=== PATIENT | female | born 1955 | race Caucasian/White ===

== ENCOUNTER 2016-10-14 15:07 | Inpatient (IN) | payer MEDICARE, BC ==
--- NOTE | ~2016-10-14 | HP ---
History And Physical [place] [id number] [facility] [place]. [address] NAME: VERENICE RDZ : 53 STATUS : ADM IN [facility]#: [id number] AGE: 60 ADM/REG DATE : 10/14/16 MR#: [id number] REPORT SERV DATE: 10/15/16 DICTATED BY: CHI DESAI DATE: 10/14/16 REPORT STATUS : Draft TRANSCRIBED BY: MODL DATE: 10/14/16 DATE OF ADMISSION: 10/14/2016 REASON FOR ADMISSION: Cachexia with acute renal failure. Severe dehydration. HISTORY OF PRESENT ILLNESS: Ms. Rdz is a 60-year-old female with rheumatoid arthritis, scleroderma, chronic kidney disease, chronic gastrointestinal motility disorder due to scleroderma, status post recent hospitalization for pneumonia and nausea and vomiting. She says she began losing weight even in the hospital, but discharged to [facility], where she continued to lose weight. Her appetite has been very poor. She tries to eat. She denied vomiting, but her son says she has been vomiting all the time. She also acknowledges that she has been having high colostomy output. She has had increasing malaise and increasing weakness, and she has been home over the past week and actually came to the hospital today because she was too weak to turn the oxygen knob of her oxygen tank, and she presented with a chief complaint of shortness of breath. The patient denies coughing or wheezing, any chest pain. No abdominal pain. She denies any change in her baseline joint and low back pain. No coughing or wheezing. No focal weakness. No bleeding. REVIEW OF SYSTEMS: Remainder of review of systems are negative. PAST MEDICAL HISTORY: As mentioned above, history of colostomy over the last 2 years. Home oxygen. She has been diagnosed with liver disease, but we do not have verification of that. MEDICATIONS: Include magnesium, albuterol, Synthroid, calcium, Levsin, sodium bicarbonate, Premarin, Prilosec, aspirin, Lortab, Orencia, hydroxychloroquine, temazepam, Anoro, multivitamin, and Ultram. ALLERGIES: CODEINE. FAMILY HISTORY: Positive for coronary artery disease. SOCIAL HISTORY: The patient has no tobacco, alcohol, or drug history. She apparently was a remote smoker. PHYSICAL EXAMINATION: VITAL SIGNS: On presentation, blood pressure 90/56, pulse 74, respirations 16, afebrile, and sat 100%. GENERAL: On exam, comfortable, but extremely cachectic white female, oriented x3. In no apparent distress. HEENT: She had very dry mucous membranes and severe temporal wasting with sunken orbits. NECK: Revealed flat jugular veins. No carotid bruits, adenopathy, or goiter. CARDIAC: Regular rate and rhythm. No murmurs, gallops, or rubs. LUNGS: Clear to auscultation bilaterally with some hyperexpansion. ABDOMEN: Showed an ostomy which appeared abnormal output, very tympanic and distended abdomen. History And Physical [address] [address] NAME: VERENICE RDZ : 53 STATUS : ADM IN [facility]#: [id number] AGE: 60 ADM/REG DATE : 10/14/16 MR#: [id number] REPORT SERV DATE: 10/15/16 DICTATED BY: CHI DESAI DATE: 10/14/16 REPORT STATUS : Draft TRANSCRIBED BY: RUBEN DATE: 10/14/16 EXTREMITIES: No cyanosis, clubbing, or edema. She had diminished pulses and virtually absent capillary refill with severe skin tenting. NEUROLOGICAL: She has 4/5 strength in all four extremities. SKIN: Warm and dry. PSYCHIATRIC: She is appropriate. LABORATORY EVALUATION: Sodium 141, potassium 3.3, chloride 110, bicarb 13, BUN 106, creatinine 2.5, and glucose 127. Anion gap of 18. Magnesium 1.5. White count 9.7, H and H of 11 and 33, and platelets 327. EKG reviewed by me showed very low voltages, but normal sinus rhythm with normal NC interval. Chest x-ray showed no apparent disease. Elevated right hemidiaphragm with atelectasis in the right base also noted. ASSESSMENT AND PLAN: 1. Severe cachexia with severe dehydration and severe malnutrition, apparently due to chronic nausea and vomiting due to the scleroderma impact upon her gastroesophageal junction, probable gastroparesis and impaired gut motility. She has a severe acute renal failure with symptomatic uremia as a result of this. Aggressive IV hydration is recommended with anti-emetic therapy. Appetite stimulants were recommended with close monitoring of p.o. intake. Dietary supplements to be given frequently. Remeron, Megace, and Marinol will all be started. Remeron apparently had been discontinued due to her liver disease. However, review of old records showed normal bilirubin, normal INR, and no evidence of hepatic dysfunction with no hepatocellular damage either. While she may in fact have anatomic cirrhosis even if there is no contraindication to Remeron or any other appetite stimulating therapies, these will therefore be reinstituted immediately. Her malnutrition and dehydration, however, are life threatening and have to be addressed. If p.o. intake remained impaired after these therapies, she may benefit from a J-tube placement with possible G-tube drainage with some probable severe gastroparesis due to scleroderma. We anticipate her creatinine will improve rapidly with aggressive hydration. We will follow her creatinine expectantly. Dr. Zapata has been notified of her hospitalization, but do not anticipate that this is scleroderma, kidney, or any other focal renal injury. Adams catheter replaced on the left. 2. COPD: This appears to be stable. Home oxygen will continue. The dyspnea appears to be only secondary to her severe weakness due to inability to turn a knob. Physical Therapy, however, will be reinstituted with anticipation of senior care facility following discharge. 3. Metabolic acidosis due to probable retained organic acids due to her acute kidney injury. She may very well also have significant starvation ketosis. Urinalysis will be investigated. There is no anticipation of lactic acidosis given her lack of symptoms of sepsis or mesenteric ischemia. 4. Anemia: She has a history of iron deficiency. We will reinvestigate iron stores. [facility]/MODL History And Physical [address] [address] NAME: VERENICE RDZ LLOYD : 53 STATUS : ADM IN [facility]#: [id number] AGE: 60 ADM/REG DATE : 10/14/16 MR#: [id number] REPORT SERV DATE: 10/15/16 DICTATED BY: CHI DESAI DATE: 10/14/16 REPORT STATUS : Draft TRANSCRIBED BY: RUBEN DATE: 10/14/16 Chi Desai M.D. / [id number] CC: Ilia Ward M.D. Richard Moody, M.D.
--- NOTE | ~2016-10-14 | CN ---
Consultation Report [facility] [address] [place]. [address] NAME: VERENICE AVENDANO : 53 STATUS : ADM IN [facility]#: [id number] AGE: 60 ADM/REG DATE : 10/14/16 MR#: [id number] REPORT SERV DATE: 10/17/16 DICTATED BY: FRANKO BERNAL DATE: 10/17/16 REPORT STATUS : Draft TRANSCRIBED BY: MODL DATE: 10/17/16 CONSULTATION. DATE OF CONSULTATION: 10/17/2016 REASON FOR CONSULTATION: Small-bowel obstruction. HISTORY OF PRESENT ILLNESS: This is a 60-year-old female, who has had a history of anal cancer for which she underwent radiation. The patient has a history of extensive radiation enteritis and previously had anal incontinence for which she had an end colostomy performed and later revision for colon stricture at the ostomy. The patient was admitted at this time for weight loss, cachexia, and high ostomy output associated with dehydration and acute kidney injury. We were consulted for distended loops of small bowel on x-ray which has increased over the last 2 hours, her distention that is. PAST MEDICAL HISTORY: Extensive and includes stage 4 chronic kidney disease, scleroderma, bowel obstruction, chemotherapy, radiation enterocolitis, rheumatoid arthritis, hypothyroidism, gastroesophageal reflux disease. Raynaud's syndrome, anemia, dysphagia, pulmonary hypertension, CHF, cervical conization/LEEP, neuropathy, MRSA pneumonia, and some history of cirrhosis of the liver. PAST SURGICAL HISTORY: Includes partial colectomy with ostomy and ostomy revision, cholecystectomy, appendectomy, section, hysterectomy, surgery on her foot, and a vulvectomy. FAMILY MEDICAL HISTORY: Includes CVA, coronary artery disease, and breast cancer. SOCIAL HISTORY: She is an ex-smoker. ALLERGIES: ALLERGIC TO CODEINE. MEDICATIONS: Takes dronabinol, heparin, Plaquenil, levothyroxine, Reglan, mirtazapine, Megace, Protonix, and thiamine. PHYSICAL EXAMINATION: GENERAL: The patient is alert and oriented x4. VITAL SIGNS: She is 98.9 degrees, 158/90, 71, 18, and 95%. HEENT: She is cachectic, PERRL, and EOMI. NECK: Cachetic. Trachea is midline. CHEST: Decreased bilateral breath sounds. HEART: Slightly tachycardic. No murmurs, rubs, or gallops. Distant heart sounds. ABDOMEN: Rigid, firm, and grossly distended. Positive tenderness to palpation diffusely. Positive peritoneal signs. Colostomy present in the left lower quadrant, is dusky, with some old blood in the ostomy appliance. Consultation Report [place] [id number] [place] [address] NAME: VERENICE AVENDANO : 53 STATUS : ADM IN [facility]#: [id number] AGE: 60 ADM/REG DATE : 10/14/16 MR#: [id number] REPORT SERV DATE: 10/17/16 DICTATED BY: FRANKO BERNAL DATE: 10/17/16 REPORT STATUS : Draft TRANSCRIBED BY: RUBEN DATE: 10/17/16 EXTREMITIES: Cool extremities, evidence of venous stasis disease. NEUROLOGIC: Decreased sensation, bilateral lower extremities. Neuro otherwise normal. LABORATORY DATA: BMP: 141, 4.7, 114, 16, 65, 1.61. Glucose of 91. Albumin is 2.3. CBC: White count of 6. H and H 8.4 and 25.1. Platelets 251. IMAGING: Abdominal x-rays over the last 2 to 3 days show grossly distended loops of small bowel and colon. IMPRESSION AND PLAN: This is a 60-year-old female with a rigid abdomen with peritonitis, abdominal compartment syndrome, and severe protein-calorie malnourishment. The plan will be for exploratory laparotomy and indicated procedures. We will draw stat labs and place a Adams now. She does have an NG tube. We have had a long discussion with the family about the patient's poor prognosis secondary to her severe protein-calorie malnutrition and the severity of this problem especially when associated with her extensive medical history and general debilitated state. Dr. Bernal was present for my evaluation. DICTATED BY: MD BLAZE Ayala/RUBEN Franko Bernal MD / [id number] CC: Franko Bernal MD
--- NOTE | ~2016-10-14 | DS ---
Discharge Summary [facility] [address] [place]. [address] NAME: VERENICE AVENDANO : 53 STATUS : DIS IN PAT#: [id number] AGE: 60 ADM/REG DATE : 10/14/16 MR#: [id number] REPORT SERV DATE: 10/21/16 DICTATED BY: IZAIAH WAN DATE: 10/20/16 REPORT STATUS : Draft TRANSCRIBED BY: MODL DATE: 10/20/16 ADMISSION DATE: 10/14/2016 DISCHARGE DATE: 10/17/2016 DATE OF : 10/17/2016. DIAGNOSES AT : 1. Ischemic bowel. 2. Acute abdominal compartment syndrome, exact etiology unclear. 3. Acute kidney injury, present on admission. 4. Chronic kidney disease. 5. Metabolic acidosis. 6. Hypomagnesemia. 7. Gastrointestinal motility disorder, possible small-bowel overgrowth. 8. Chronic nausea, question gastroparesis with gastroesophageal reflux disease. 9. Scleroderma with Raynaud's. 10.Rheumatoid arthritis. 11.Pulmonary hypertension. 12.Tricuspid regurgitation. 13.Right ventricular dysfunction. 14.Chronic diastolic heart failure. 15.Chronic respiratory failure. 16.History of rectal cancer, post chemotherapy and radiation therapy with subsequent radiation colitis. 17.Neuropathy. 18.Chronic anemia. 19.Alcoholic liver disease. 20.Chronic pain syndrome. 21.Hypotension associated with DEWEY inhibitor therapy (recommended in the hospital by Nephrology because of scleroderma renal crisis risk). OPERATION AND PROCEDURE: Exploratory laparotomy, 10/17/2006, Dr. Kishor Bernal. PRESENT ILLNESS: This is a 60-year-old white female who was triaged in the emergency room on 10/14/2016 at 1304 hours complaining of shortness of breath. Her admission blood pressure was 91/56, temperature 97.9, pulse 74, respirations 16, and O2 saturation 100% on 3 L. After evaluation in the emergency room, she was found to have several metabolic abnormalities. She was referred to the Hospitalist Service for admission. She was seen by Dr. Albino Galindo, admitted as described on admission history and physical examination. Additional history included a hospitalization here, 09/10/2016 to 09/18/2016, with discharge diagnoses: 1. Right lower lobe pneumonia. 2. Acute kidney injury on chronic kidney disease, stage III. 3. Status post septic shock. 4. Nausea and vomiting. Discharge Summary [place] [address] [place]. [address] NAME: VERENICE AVENDANO : 53 STATUS : DIS IN PAT#: [id number] AGE: 60 ADM/REG DATE : 10/14/16 MR#: [id number] REPORT SERV DATE: 10/21/16 DICTATED BY: IZAIAH WAN DATE: 10/20/16 REPORT STATUS : Draft TRANSCRIBED BY: MODL DATE: 10/20/16 5. Bradycardia which had resolved. 6. Debility and deconditioning. She was transferred to [facility] for rehabilitation. She continued to lose weight at [facility]. She was subsequently discharged home. Her appetite remained poor. She had persistent anorexia, nausea, and vomiting with a high colostomy output. ADDITIONAL HISTORY: Per Dr. Galindo. PHYSICAL EXAMINATION: Per Dr. Galindo. ADMISSION LABORATORY: Per Dr. Galindo. HOSPITAL COURSE: She was admitted by Dr. Galindo with one severe cachexia with: 1. Severe dehydration and severe malnutrition apparently due to chronic nausea and vomiting due to scleroderma impact upon her GI junction, probable gastroparesis, and impaired gut motility. 2. Acute kidney injury. 3. Stable COPD. 4. Metabolic acidosis. 5. Anemia. On admission, she was placed on 6 [address]. She was given crystalloid volume resuscitation. She was placed on Marinol, Reglan, and Remeron in attempt to stimulate her appetite. Renal consultation was obtained. She was seen by Dr. Zapata and Kera Best. Her hospitalist care was assumed by the undersigned on 10/15/2016. With the above-mentioned therapy, her nausea and vomiting improved. Her abdomen became initially less distended. She maintained a good ostomy output. Her BUN on admission was 106. By the morning of 10/17/2016, it had improved to 56. Her creatinine had fallen from 2.54 to 1.63. Nephrology recommended low-dose DEWEY inhibitor therapy in an attempt to avoid scleroderma renal crisis. With this, she developed systolic blood pressures in the 60s and 70s. She was asymptomatic with this. Albumin infusions were recommended. Her blood pressure improved into the 80s and 90s systolic, and she remained asymptomatic. It was felt she might have bacterial overgrowth with her GI motility disorder. She was started on rifaximin which also seemed to provide some benefit. On the morning of 10/17/2016, she had no nausea. She was having stool. She was taking p.o. liquids and tolerating this well. She was not short of breath and she was not having chest pain. She wanted to try additional p.o. intake. On exam, she had no JVD. Her lungs were Discharge Summary [address] [place]. [address] NAME: VERENICE AVENDANO : 53 STATUS : DIS IN PAT#: [id number] AGE: 60 ADM/REG DATE : 10/14/16 MR#: [id number] REPORT SERV DATE: 10/21/16 DICTATED BY: IZAIAH WAN DATE: 10/20/16 REPORT STATUS : Draft TRANSCRIBED BY: RUBEN DATE: 10/20/16 clear and heart regular. Her abdomen was soft and nontender. She had active bowel sounds. She did not have any increased distention. Her diet was advanced. With her clinical improvement, PT/OT consultations were requested to consider possible rehab again when her hospital care was complete. At 1434 hours on 10/17/2016, I was called to see her because of sudden severe abdominal pain and distention. At that point, she was having ostomy output. She reported that for lunch she had had 2 pieces of pasta and sips of soup. Her blood pressure was 150/86. She was in sinus rhythm at 95. Her O2 sats were in the 80s on room air but 96 on 5 L. Her lungs were clear, heart regular, but her abdomen was dramatically tight, distended, hard, and tender. A bowel obstruction was considered. For symptomatic control, she was given IV morphine and Ativan. A stat KUB did not show any free air, but only dilated bowel as before. An NG tube was placed and 400 plus mL of a soupy aspirate was obtained. It did not relieve her abdominal pain. Surgical consultation was requested. I spoke with Dr. Kishor Bernal who knew her. A president sales and marketing arrived quickly and concurred with her acute abdominal findings and need for surgery. Dr. Bernal arrived and concurred. His impression was rigid abdomen with peritonitis, abdominal compartment syndrome, and severe protein-calorie malnourishment. He suggested exploratory laparotomy and indicated procedures. He had a long discussion with the family about the patient's poor prognosis. This was also discussed with the patient. I was at bedside during part of this discussion. She was taken to the operating room. No internal hernia, adhesive bands, or any sign of obstruction were found. The patient's entire small bowel was extremely dilated with air. Her abdominal wall was tense and the bowel spilled out of her abdomen when the incision was made. Her entire small bowel was noted to be ischemia. There was no obstruction to the arterial supply. There were visible bubbles in all of her arteries and veins to the entire small bowel. There was pulsatile blood flow visible after decompressing the abdomen within the arteries. After milking all the gas possible proximally and suctioning out her NG tube, her bowels were decompressed and easily remained within the abdominal cavity. They did pink up somewhat, but Dr. Bernal thought the patient had a poor prognosis. She was taken to the MICU. She was seen by Dr. Ron. On arrival, her blood pressure was 69/31 despite maximum doses of epinephrine and Levophed. The patient was sedated and nonresponsive. Aggressive care was initiated per Dr. Ron's dictated note. Subsequently, it was clear that there was no hope for survival. Dr. Ron discussed this with the family. Care was withdrawn. She at 2153 hours. No autopsy was obtained. DD/RUBEN Discharge Summary [address] [address] NAME: VERENICE AVENDANO : 53 STATUS : DIS IN [facility]#: [id number] AGE: 60 ADM/REG DATE : 10/14/16 MR#: [id number] REPORT SERV DATE: 10/21/16 DICTATED BY: IZAIAH WAN DATE: 10/20/16 REPORT STATUS : Draft TRANSCRIBED BY: RUBEN DATE: 10/20/16 Izaiah Wan M.D. / [id number]
--- NOTE | ~2016-10-14 | CN ---
Consultation Report [facility] [address] [place]. [address] NAME: VERENICE AVENDANO : 53 STATUS : ADM IN PAT#: [id number] AGE: 60 ADM/REG DATE : 10/14/16 MR#: [id number] REPORT SERV DATE: 10/17/16 DICTATED BY: MERI RON DATE: 10/17/16 REPORT STATUS : Draft TRANSCRIBED BY: MODL DATE: 10/17/16 DATE OF CONSULTATION: ADDENDUM: For details of the patient's admission hospital course, please see previous history and physical and my consultation note. Condition of the patient was discussed with the family, and then finally, it was decided that we will withdraw care. All pressors were turned off and the patient was taken off the ventilator. The patient at 2153 hours on 10/17/2016. /MODL Meri Ron M.D. / [id number] CC: Eyal Davenport M.D.
--- NOTE | ~2016-10-14 | CN ---
Consultation Report [facility] [address] [place]. [address] NAME: VERENICE AVENDANO : 53 STATUS : ADM IN PAT#: [id number] AGE: 60 ADM/REG DATE : 10/14/16 MR#: [id number] REPORT SERV DATE: 10/17/16 DICTATED BY: MERI RON DATE: 10/17/16 REPORT STATUS : Draft TRANSCRIBED BY: MODL DATE: 10/17/16 CONSULTATION REPORT DATE OF CONSULTATION: HISTORY OF PRESENT ILLNESS: This is a 60-year-old patient with known history of rheumatoid arthritis, scleroderma, and CKD who was recently hospitalized and treated for pneumonia and has a known chronic gastrointestinal motility disorder. She was discharged to [facility] and continued to lose weight with poor appetite and apparently had some vomiting and then developed high output through her colostomy. She was then subsequently admitted for further evaluation and treatment. Upon admission, she was found to have severe cachexia, dehydration, and malnutrition. She was aggressively rehydrated with IV fluids. Nephrology was asked to see the patient secondary to acute kidney injury. She continued to have increased output through her ostomy and began having abdominal pain today, on 10/17/2016. Imaging was done in the form of a KUB that showed dilated loops of bowel. NG tube was placed and 400 mL of gastric contents were evacuated. Dr. Bernal saw the patient and took the patient for exploratory laparotomy, especially after she was examined and was found to have a rigid abdomen. It was found that the patient had ischemic bowel and peritonitis, no further surgical intervention could be done and the patient was closed, left on the ventilator, and brought back to the MICU for further care. Overall prognosis as discussed with Dr. Bernal was not good. I was told that the patient so far was a full code. The patient was examined in the MICU and was severely hypothermic. Temperature could not be obtained. Blood pressure was 69/31 despite maximum doses of epinephrine and Levophed, respiratory rate was 18, set on a rate of 18, and heart rate was 72. The patient was not sedated and nonresponsive. The patient has adverse reactions to codeine, which causes itching. MEDICATIONS: Her home medications are Orencia, albuterol, ammonium lactate, topical aspirin, calcium carbonate, estradiol, hydrocodone, Plaquenil, hyoscyamine sulfate, levothyroxine, Ativan, magnesium oxide, Reglan, Remeron, multivitamins, Zofran, Protonix, Florastor, sodium bicarbonate, Restoril, Desyrel, and Anoro Ellipta. PAST MEDICAL HISTORY: Significant for CKD, stage IV; scleroderma; history of bowel obstruction; rectal cancer, status post resection and colostomy, status post chemotherapy and history of radiation colitis; rheumatoid arthritis; hypothyroidism; reflux; Raynaud's phenomenon; anemia; dysphagia; pulmonary hypertension; CHF; cervical conization; neuropathy; pneumonia with MRSA; liver disease; hemicolectomy; cholecystectomy; appendectomy; ; hysterectomy; foot surgery; vulvectomy; known COPD, on home O2; history of severe alcohol abuse, this was remote. FAMILY HISTORY: Significant for coronary artery disease, CVA, and breast cancer. There is a remote history of smoking. The patient quit several years ago. Consultation Report [address] [place]. [address] NAME: VERENICE AVENDANO : 53 STATUS : ADM IN [facility]#: [id number] AGE: 60 ADM/REG DATE : 10/14/16 MR#: [id number] REPORT SERV DATE: 10/17/16 DICTATED BY: MERI RON DATE: 10/17/16 REPORT STATUS : Draft TRANSCRIBED BY: RUBEN DATE: 10/17/16 REVIEW OF SYSTEMS: Could not be obtained from the patient since she is orally intubated and not responsive. PHYSICAL EXAMINATION: GENERAL: She is hypothermic, unresponsive, not sedated. VITAL SIGNS: Heart rate is 72, blood pressure is 69/31, respiratory rate is 18, and O2 saturation could not be obtained. The patient appears faust, cool to touch. HEENT: Head is atraumatic and normocephalic. Pupils are unreactive. Sclerae anicteric. Conjunctivae are pale. Nasal mucosa is within normal limits. Oral mucosa is intubated. NECK: Supple without JVD, lymphadenopathy, or thyromegaly. Right internal jugular triple- lumen catheter is in place. Neck is supple. LUNGS: Bilateral wheezing is heard on chest exam, bilateral excursion is equal. ABDOMEN: Distended, firm, and mottled. There are no bowel sounds in place. There is no oozing of blood from the incision at the base. Ostomy is in place and is chronic and has no stool in the bag. Adams is in place. EXTREMITIES: Without cyanosis, clubbing, or edema. Pulses are barely palpable. NEUROLOGIC : The patient is unresponsive to deep noxious stimuli. LABORATORY DATA: ABG shows a pH of 6.7, pCO2 is 76, PO2 is 215, and bicarbonate 11.8. Chest x-ray shows good placement of her endotracheal tube and her internal jugular-triple lumen as well as of the orogastric tube. Sodium 144, potassium is 5.0, chloride 113, carbon dioxide level is 11, BUN is 45, creatinine 1.68, blood sugar is 152, magnesium is 2.0, phosphorus 5.7, AST is 2367, and ALT is 1274. Cortisol level was 18. Lactic acid level was 11. White cell count is 11, hemoglobin 5.6, hematocrit 18, platelet count is 119,000, and 26 bands. INR of 5. PTT is greater than 150. ASSESSMENT AND PLAN: This is a 60-year-old patient with multiple medical problems who has developed ischemic bowel and is now is status post exploratory laparotomy with findings consistent with peritonitis and bowel. Overall, the patient's prognosis is extremely poor. Initially, it was related to me that the patient wanted aggressive therapy, and so, although she is already on epinephrine, Levophed weight-based protocol and vasopressin were added. Attempts were made to correct her anemia, pending remainder of her lab work. The plan was to start her on a bicarbonate drip. Transfuse at least 1 unit of blood. Make ventilator adjustments as appropriate. But overall the patient was hypothermic to the point where we could not get a temperature or a blood pressure. Attempts at A-line placement were futile by Anesthesia. The patient is not sedated, unresponsive, and not breathing above the ventilator. Given the patient's condition, the plan will be to at least continue aggressive care with pressors, transfusion, antibiotics, and attempts to correct her other metabolic derangements. However, I will speak to the family about at least a code status and not to do CPR or shock the patient and even eventually withdrawal of care. Total time spent at the patient's bedside with the family was 120 minutes for critical care time. This care involved treatment of circulatory hepatic respiratory shock. Vasoactive manipulations, volume resuscitations, frequent ventilatory manipulation, hemodynamic assessment, neurologic monitoring, and treatment along with assessment and treatment of Consultation Report [facility] [address] [place]. [address] NAME: VERENICE AVENDANO : 53 STATUS : ADM IN PAT#: [id number] AGE: 60 ADM/REG DATE : 10/14/16 MR#: [id number] REPORT SERV DATE: 10/17/16 DICTATED BY: MERI RON DATE: 10/17/16 REPORT STATUS : Draft TRANSCRIBED BY: MODL DATE: 10/17/16 complex metabolic derangements. /MODL Meri Ron M.D. / [id number] CC: Eyal Davenport M.D.
--- NOTE | ~2016-10-14 | CN ---
Consultation Report [facility] [address] [place]. [address] NAME: VERENICE AVENDANO : 53 STATUS : ADM IN [facility]#: [id number] AGE: 60 ADM/REG DATE : 10/14/16 MR#: [id number] REPORT SERV DATE: 10/15/16 DICTATED BY: DATE: REPORT STATUS : Draft TRANSCRIBED BY: MODCoral DATE: 10/15/16 CONSULTATION REPORT DATE OF CONSULTATION: REASON FOR CONSULTATION: Acute kidney injury. HISTORY OF PRESENT ILLNESS: Ms. Avendano is a 60-year-old white female, followed by Dr. Zapata in the office with CKD stage 4. It looks as though her baseline creatinine is 1.9 to 2.1, 2.1 in July of 2016. She presented to the hospital after recent hospitalization and then rehab stay with home for two weeks, presented back to the hospital with weakness and her son reported that she was having nausea and vomiting throughout the whole two weeks that she had been home, however, the patient denies that. She had increased ostomy output. On her arrival, her creatinine was 2.4. She was significantly acidotic and she was admitted for hydration. Creatinine today is down to 1.97. Her nausea is better and she is tolerating p.o. Ostomy output is same. She states she is urinating without difficulty. PAST MEDICAL HISTORY: CKD stage 4, scleroderma, history of bowel obstruction, rectal cancer with surgical resection. She had chemotherapy and radiation colitis, RA, hypothyroidism, reflux, Raynaud's, anemia, dysphagia, pulmonary hypertension, CHF, cervical conization, neuropathy, pneumonia MRSA, liver disease, hemicolectomy, cholecystectomy, appendectomy, C- section, hysterectomy, foot surgery, vulvectomy. FAMILY MEDICAL HISTORY: CVA, coronary artery disease, breast cancer. SOCIAL HISTORY: She has a history of tobacco, quit several years ago; history of alcohol. ALLERGIES: CODEINE. MEDICATIONS: At present, dronabinol, heparin, Plaquenil, levothyroxine, Reglan, mirtazapine, Megace, Protonix, thiamine. REVIEW OF SYSTEMS: 12-point review of systems was obtained, negative with the exception that in HPI. PHYSICAL EXAMINATION: VITAL SIGNS: Temp 98.3, blood pressure is 100/56, pulse 80, respiratory rate 22, O2 saturation is 100%. GENERAL: This is a cachectic white female. She is awake, alert, oriented, answers questions appropriately. HEENT: Normocephalic, atraumatic. Conjunctivae clear. Sclerae anicteric. Oral mucosa is very dry. NECK: Supple. Carotids without bruits. Neck veins flat. No lymphadenopathy. LUNGS: Respirations are even and unlabored. Breath sounds clear to auscultation. Consultation Report [address] [place]. [address] NAME: VERENICE AVENDANO : 53 STATUS : ADM IN PAT#: [id number] AGE: 60 ADM/REG DATE : 10/14/16 MR#: [id number] REPORT SERV DATE: 10/15/16 DICTATED BY: DATE: REPORT STATUS : Draft TRANSCRIBED BY: RUBEN DATE: 10/15/16 CARDIOVASCULAR: Heart rate is regular. No murmur, rub, or gallop. ABDOMEN: Soft. Ostomy to the left. No CVA tenderness. BACK: Within normal limits. EXTREMITIES: No cyanosis, clubbing. SKIN: Dry, scaly. No unusual rashes or skin lesions. NEURO: Generalized weakness. No focal deficits. Mood and affect, pleasant and appropriate. PERTINENT LABS AND X-RAYS: Her pH is 7.2, pCO2 of 23, PO2 of 112, bicarb of 8.8. Abdominal series, negative. Sodium 142, potassium 3.4, chloride 115, CO2 of 11, BUN of 82, creatinine of 1.97, magnesium of 1.4. Albumin of 2.8, bilirubin 0.6, alkaline phosphatase 216. SGOT of 45, SGPT of 35. WBCs 9, H and H 10 and 33, platelets 327. IMPRESSION: 1. Acute kidney injury on chronic kidney disease stage 4. 2. Metabolic acidosis, acute on chronic. 3. Hypomagnesemia. 4. Hypokalemia. 5. Weakness. 6. Increased ostomy output. 7. Nausea and vomiting. PLAN: I agree with current hydration. She is getting fluids with bicarb. We will add some oral bicarb. Follow labs and I's and O's. As far as creatinine, she is actually at what it looks to be from our office records, her chronic state, her last creatinine in the office was 2.1 and her BUN stays elevated, it was 65 at our office in July as well. She always has electrolyte abnormalities and we will follow with this and we will follow along with you. Thank you for the consultation. ROSALIND/RUBEN WHITNEY Cevallos / [id number] CC: Ilia Alberto M.D.
--- NOTE | ~2016-10-14 | OP ---
Record Of Operation [facility] [address] [place]. [address] NAME: VERENICE AVENDANO : 53 STATUS : DIS IN PAT#: [id number] AGE: 60 ADM/REG DATE : 10/14/16 MR#: [id number] REPORT SERV DATE: 10/18/16 DICTATED BY: FRANKO BERNAL DATE: 10/17/16 REPORT STATUS : Draft TRANSCRIBED BY: MODL DATE: 10/17/16 DATE OF PROCEDURE: 10/17/2016 PREOP DIAGNOSES: Peritoneal signs and abdominal compartment syndrome. POSTOP DIAGNOSIS: Ischemic bowel. SURGEON: Franko Bernal MD PROCEDURE: Exploratory laparotomy. COMPLICATIONS: None. IV FLUIDS: Per Anesthesia record. ESTIMATED BLOOD LOSS: Minimal, 10 mL. SPECIMENS: None. FINDINGS: Although no internal hernia, adhesive bands, or any sign of obstruction were found, the patient's entire small bowel was extremely dilated with air. Her abdominal wall was tense and the bowel spilled out of her abdomen when the incision was made. Her entire small bowel was noted to be ischemic. Although there was no obstruction to the arterial supply, there were visible bubbles in all of her arteries and veins to the entire small bowel. There was pulsatile blood flow visible after decompressing the abdomen within the arteries, but again there were multiple bubbles there. After milking all the gas possible proximally and suctioning out the NG tube, the bowels were much decompressed and easily remained within the abdominal cavity. They did pink up somewhat, but I think the patient has extremely poor prognosis. PROCEDURE IN DETAIL: Preoperatively, the patient was definitively identified in the holding area. It was confirmed that a signed consent was on chart. I personally discussed the patient's wishes to be full code with she and her son and other family members. I personally discussed with her the risks of surgery, and although she had received some sedation, she appeared to understand. The patient was transferred to the operating room and placed supine on the operating room table. After appropriate surgical pause, general endotracheal anesthesia was administered by Anesthesia team. She had previously received a central line. Arterial line placement failed. She was prepped and draped in normal sterile fashion. A midline incision was created sharply and carried down to the fascia. I entered the fascia sharply with a pushing motion on the knife to avoid damaging any bowel underneath. There was bowel immediately in evidence. I was able to get a finger in the abdomen and complete the rest of the incision safely with Bovie electrocautery. All of her small bowel spilled out into the incision. There was no twisting obvious. There was no internal hernia or any other cause for the dilation of the bowel. Air was easily milked proximally and distally. Her descending and ascending colons appeared essentially normal. There was no twisting at the level of the colostomy. After decompressing the bowel by Record Of Operation [facility] [address] [place]. [address] NAME: VERENICE AVENDANO : 53 STATUS : DIS IN PAT#: [id number] AGE: 60 ADM/REG DATE : 10/14/16 MR#: [id number] REPORT SERV DATE: 10/18/16 DICTATED BY: FRANKO BERNAL DATE: 10/17/16 REPORT STATUS : Draft TRANSCRIBED BY: MODL DATE: 10/17/16 milking all the gas proximally and observing all the findings mentioned above, I elected to close understanding the patient's poor prognosis. Although she did have compartment syndrome and she was at risk for this reforming. I did not feel that the chance that she would survive this insult large enough that I would spend an extra 10 minutes in the operating room gathering the supplies for temporary abdominal closure. I therefore closed our midline fascia with #1 looped PDS suture as rapidly as possible and closed her skin with ava. Dry dressing was placed followed by tape. The patient's abdomen was completely soft after decompressing in this manner. She was transferred to the intensive care unit in critical condition while intubated. I doubt she will survive for many more hours and indeed without she was having increasing pressor requirements after decompressing the abdomen. ECN/MODL Franko Bernal MD / [id number] CC: Ilia Alberto M.D.
[2016-10-14 14:56] LABS: ER CBC TAT 0 Hrs 03 Mins; MEAN CORPUS HGB CONC 32.3 g/dL (32.0-36.0); MEAN CORPUSCULAR HEMOGLOB 32.2 pg (26.0-34.0); MEAN PLATELET VOLUME 9.9 fL (9.2-13.0); PLATELET COUNT 327 10/3/uL (150-400); RBC DISTRIBUTION WIDTH 15.6 % (12.0-16.0); WHITE BLOOD CELLS 9.7 10/3/uL (4.5-10.5)
[2016-10-14 14:58] LABS: HEMATOCRIT 33.1 % (36.0-48.0); HEMOGLOBIN 10.7 g/dL (12.0-16.0); MANUAL DIFF YES %; MEAN CORPUSCULAR VOLUME 99.7 fL (80-100); RED CELL COUNT 3.32 10/6/uL (4.0-5.6)
[2016-10-14 15:05] LABS: INTERNATIONAL NORMAL RATI 1.1 UNITS (-); PARTIAL THROMBO TIME 30.8 SEC (22.5-37.2); PROTIME (NOT ORD) 14.4 SEC (12.0-14.5)
[~2016-10-14 15:07] MED LIST: AFEDITAB30 MG PO; ALEVE220 MG PO; ALORA0.05 MG TD; ALTA125 PO; AMLACTIN121 TOP; ANASPAZ0.125 MG PO; ANOROELLIPTA INH; ASAB PO; ATV.5 PO; ATV1 PO; CALCIUM + VIT D PO; CALTRA600D PO; CALTRAT600 PO; CENTRUM PO; CHANTIX1 PO; CLOBETASOL0.051 TOP; CO Q-10100 MG PO; CYANO1000T PO; DIL4TAB PO; ESTRACE VAG0.1 MG/GM V; ESTRACE VAGIN42.5 GM V; GAS-X80 MG PO; IMOD PO; K500 PO; KLOR-CON M1010 MEQ PO; KLOR-CON M2020 MEQ PO; L20 PO; L40 PO; L80 PO; LEVOTHYROXIN100 MCG PO; LEVOTHYROXIN25 MCG PO; LEVOTHYROXIN50 MCG PO; LEVOXYL112 MCG PO; LEVSINTAB PO; LEVSINTAB PO/SL; LIDO5OINT TOP; LIDOVISCUD; LOM PO; LOMOTILUDL PO; MAGOX4 PO; MESALAMINE; MIRALAXPKT PO; MULTIPLE VIT PO; MULTIVIT/MIN PO; MULTIVITAMI1 PO; MYLICON 80 MG T80 MG PO; NORCO1 TA1 PO; NORCO1 TA2 PO; ORENCIA250 MG IM; ORENCIA250 MG IV; PCET PO; PERCOCET1 TA4 PO; PLAQ200B PO; POTASSIUM PO; PR12.5 PO; PREMARIN CREAM TOP; PRILOSEC40 MG PO; PROBIOTIC PO; PVC V; QUESTRAN4 GM PO; REG PO; REM15 PO; REMERON30 MG PO; REST15 PO; RESTORIL30 MG PO; ROXICODONE30 MG PO; SODBICAR10 PO; SYN.025B PO; SYN1 PO; TYLENOL ARTH650 MG PO; UCERIS; ULTRAM50 PO; URO-MAG140 MG PO; VENTOLIN HFA INH; VITAMIN B-121000 MC1 SL; VITAMIN D31000 UNIT PO; VITE PO; XANAX1 MG PO; ZAROX2.5B PO; ZOCOR10 PO; [UNRECOGNIZED DRUG - OTHER] PO; [UNRECOGNIZED DRUG - OTHER] RE
[2016-10-14 15:11] LABS: CALCIUM, SERUM 8.1 MG/DL (8.5-10.4); CHEST PAIN PROFILE TAT 0 Hrs 21 Mins; CHLORIDE, SERUM 110 MMOL/L (96-112); POTASSIUM, SERUM 3.3 MMOL/L (3.5-5.3); SODIUM, SERUM 141 MMOL/L (135-148); TROPONIN I <0.02 NG/ML (<0.05)
[2016-10-14 15:12] LABS: BUN (BLOOD UREA NITROGEN) 106 MG/DL (6-23); CO2 (CARBON DIOXIDE) 13 MMOL/L (24-34); CREATININE 2.54 MG/DL (0.55-1.02); GFR AFRICAN AMERICAN 23 ML/MIN (>=60); GFR NON AFRICAN AMERICAN 20 ML/MIN (>=60); GLUCOSE, SERUM 127 MG/DL (60-99)
[2016-10-14 16:05] LABS: SEGMENTED NEUTROPHIL (0) 84 %; TOTAL NUCLEATED CELLS 100
[2016-10-14 16:06] LABS: BAND NEUTROPHILS 11 %; ER DIFF TAT 1 Hrs 12 Mins; LYMPHOCYTES 4 %; LYMPHOCYTES ABSOLUTE (CALC) 0.39 10/3/uL (0.67-4.30); METAMYELOCYTES 1 %; NEUTROPHILS ABSOLUTE (CALC) 9.22 10/3/uL (2.02-8.40)
[2016-10-14 16:07] LABS: PLATELET ESTIMATE ADQ (ADEQUATE); RBC MORPHOLOGY NORM (NORMAL)
[2016-10-14] MEDS ORDERED: IODOSORB TOP (16:50)
[2016-10-14] MEDS ORDERED: REG5 PO (17:03)
[2016-10-14] MEDS ORDERED: FLORASTOR250 MG PO (17:04)
[2016-10-14] MEDS ORDERED: PROTONIX PO (17:04)
[2016-10-14] MEDS ORDERED: TRAZ50 PO (17:05)
[2016-10-14] MEDS ORDERED: ZOFRAN ODT4 MG PO (17:08)
[2016-10-14] MEDS ORDERED: ALBUTEROL0.083 % INH (17:09)
[2016-10-15 06:30] LABS: % IRON SAT 29 % (20-50); CALCIUM, SERUM 7.5 MG/DL (8.5-10.4); CHLORIDE, SERUM 115 MMOL/L (96-112); FERRITIN 536 NG/ML (8-252); GLUCOSE, SERUM 109 MG/DL (60-99); IRON BINDING CAPACITY 182 MCG/DL (225-410); IRON, SERUM 52 MCG/DL (35-150); POTASSIUM, SERUM 3.4 MMOL/L (3.5-5.3); SGOT(AST) 35 U/L (5-40); SGPT(ALT) 45 U/L (5-65); SODIUM, SERUM 142 MMOL/L (135-148); TOTAL BILIRUBIN 0.6 MG/DL (0-1.2); TOTAL PROTEIN 6.4 G/DL (6.0-8.5)
[2016-10-15 06:33] LABS: A/G RATIO 0.8 (0.7-1.9); ALBUMIN 2.8 G/DL (3.5-5.0); ALKALINE PHOSPHATASE 216 U/L (45-117); BUN (BLOOD UREA NITROGEN) 82 MG/DL (6-23); CO2 (CARBON DIOXIDE) 11 MMOL/L (24-34); CREATININE 1.97 MG/DL (0.55-1.02); GFR AFRICAN AMERICAN 31 ML/MIN (>=60); GFR NON AFRICAN AMERICAN 27 ML/MIN (>=60); GLOBULIN 3.6 G/DL (2.5-4.1)
[2016-10-15 08:11] LABS: BE (BASE EXCESS) -17.6 MEQ/L (0 +/- 2.5); HCO3 (ACTUAL BICARBONATE) 8.8 MEQ/L (23-27); INSTRUMENT SERIAL # 8087; PCO2 (CO2 TENSION) 23 MMHG (35-45); PO2 (O2 TENSION) 112 MMHG (79-93)
[2016-10-15 08:12] LABS: ALLENS TEST Pos; CARBOXYHEMOGLOBIN 0.3 % (0-3); HEMOBLOGIN CONTENT 10.6 G/DL (12-16); METHEMOGLOBIN 0.1 % (0-3); O2 CONTENT 14.2 VOL% (18-24); OPERATOR ID 14335; SAMPLE Arterial
[2016-10-16 07:14] LABS: ALBUMIN 2.3 G/DL (3.5-5.0); BUN (BLOOD UREA NITROGEN) 65 MG/DL (6-23); CALCIUM, SERUM 7.5 MG/DL (8.5-10.4); CHLORIDE, SERUM 114 MMOL/L (96-112); CO2 (CARBON DIOXIDE) 16 MMOL/L (24-34); CREATININE 1.61 MG/DL (0.55-1.02); GFR AFRICAN AMERICAN 40 ML/MIN (>=60); GFR NON AFRICAN AMERICAN 34 ML/MIN (>=60); GLUCOSE, SERUM 91 MG/DL (60-99); PHOSPHORUS, SERUM 1.1 MG/DL (2.5-4.5); POTASSIUM, SERUM 4.7 MMOL/L (3.5-5.3); SODIUM, SERUM 141 MMOL/L (135-148)
[2016-10-17 04:45] LABS: BASOPHILS 0.2 %; BASOPHILS ABSOLUTE 0.01 10/3/uL (0.0-0.16); EOSINOPHILS 0.7 %; EOSINOPHILS ABSOLUTE 0.04 10/3/uL (0.0-0.53); IMMATURE GRANULOCYTES 0.3 %; IMMATURE GRANULOCYTES ABSOLUTE 0.02 10/3/uL (0.0-0.11); LYMPHOCYTES 12.5 %; LYMPHOCYTES ABSOLUTE 0.75 10/3/uL (0.67-4.30); MEAN CORPUS HGB CONC 33.5 g/dL (32.0-36.0); MEAN CORPUSCULAR HEMOGLOB 33.2 pg (26.0-34.0); MEAN CORPUSCULAR VOLUME 99.2 fL (80-100); MEAN PLATELET VOLUME 9.7 fL (9.2-13.0); MONOCYTES 8.7 %; MONOCYTES ABSOLUTE 0.52 10/3/uL (0.21-1.20); NEUTROPHILS 77.6 %; NEUTROPHILS ABSOLUTE 4.67 10/3/uL (2.02-8.40); PLATELET COUNT 251 10/3/uL (150-400); RBC DISTRIBUTION WIDTH 15.9 % (12.0-16.0)
[2016-10-17 04:46] LABS: HEMATOCRIT 25.1 % (36.0-48.0); HEMOGLOBIN 8.4 g/dL (12.0-16.0); MANUAL DIFF NO %; RED CELL COUNT 2.53 10/6/uL (4.0-5.6)
[2016-10-17 05:03] LABS: CALCIUM, SERUM 7.9 MG/DL (8.5-10.4); CHLORIDE, SERUM 109 MMOL/L (96-112); CO2 (CARBON DIOXIDE) 18 MMOL/L (24-34); CREATININE 1.63 MG/DL (0.55-1.02); GFR AFRICAN AMERICAN 39 ML/MIN (>=60); GFR NON AFRICAN AMERICAN 34 ML/MIN (>=60); GLUCOSE, SERUM 87 MG/DL (60-99); PHOSPHORUS, SERUM 1.3 MG/DL (2.5-4.5); POTASSIUM, SERUM 4.3 MMOL/L (3.5-5.3); SODIUM, SERUM 141 MMOL/L (135-148)
[2016-10-17 05:12] LABS: ALBUMIN 3.6 G/DL (3.5-5.0); BUN (BLOOD UREA NITROGEN) 56 MG/DL (6-23)
[2016-10-17 16:50] LABS: INTERNATIONAL NORMAL RATI 1.2 UNITS (-); PARTIAL THROMBO TIME 25.6 SEC (22.5-37.2)
[2016-10-17 16:59] LABS: A/G RATIO 2.2 (0.7-1.9); ALBUMIN 5.8 G/DL (3.5-5.0); ALKALINE PHOSPHATASE 149 U/L (45-117); BUN (BLOOD UREA NITROGEN) 51 MG/DL (6-23); CALCIUM, SERUM 7.7 MG/DL (8.5-10.4); CHLORIDE, SERUM 108 MMOL/L (96-112); CO2 (CARBON DIOXIDE) 11 MMOL/L (24-34); CREATININE 1.75 MG/DL (0.55-1.02); GFR AFRICAN AMERICAN 36 ML/MIN (>=60); GFR NON AFRICAN AMERICAN 31 ML/MIN (>=60); GLOBULIN 2.6 G/DL (2.5-4.1); GLUCOSE, SERUM 120 MG/DL (60-99); PHOSPHORUS, SERUM 2.4 MG/DL (2.5-4.5); POTASSIUM, SERUM 4.4 MMOL/L (3.5-5.3); SGOT(AST) 144 U/L (5-40); SGPT(ALT) 67 U/L (5-65); SODIUM, SERUM 139 MMOL/L (135-148); TOTAL BILIRUBIN 0.5 MG/DL (0-1.2); TOTAL PROTEIN 8.4 G/DL (6.0-8.5)
[2016-10-17 18:09] LABS: HEMATOCRIT 24.1 % (36.0-48.0); HEMOGLOBIN 7.7 g/dL (12.0-16.0); MEAN CORPUSCULAR HEMOGLOB 32.9 pg (26.0-34.0); MEAN PLATELET VOLUME 9.3 fL (9.2-13.0); PLATELET COUNT 257 10/3/uL (150-400); RBC DISTRIBUTION WIDTH 16.6 % (12.0-16.0); RED CELL COUNT 2.34 10/6/uL (4.0-5.6); WHITE BLOOD CELLS 6.3 10/3/uL (4.5-10.5)
[2016-10-17 18:14] LABS: MANUAL DIFF YES %
[2016-10-17 18:28] LABS: ANISOCYTOSIS 1+ (5-10/OIF) (0-5/OIF); BAND NEUTROPHILS 15 %; IMMATURE GRANS ABSOLUTE (CALC) 0.06 10/3/uL (0.0-0.11); LYMPHOCYTES 12 %; LYMPHOCYTES ABSOLUTE (CALC) 0.76 10/3/uL (0.67-4.30); MACROCYTES 1+ (5-10/OIF) (0-5/OIF); METAMYELOCYTES 1 %; NEUTROPHILS ABSOLUTE (CALC) 5.48 10/3/uL (2.02-8.40); PLATELET ESTIMATE ADQ (ADEQUATE); SEGMENTED NEUTROPHIL (0) 72 %; TOTAL NUCLEATED CELLS 100
[2016-10-17 20:01] LABS: MEAN PLATELET VOLUME 11.2 fL (9.2-13.0); RBC DISTRIBUTION WIDTH 16.6 % (12.0-16.0)
[2016-10-17 20:03] LABS: RED CELL COUNT 1.75 10/6/uL (4.0-5.6)
[2016-10-17 20:04] LABS: HEMATOCRIT 18.6 % (36.0-48.0); HEMOGLOBIN 5.6 g/dL (12.0-16.0); MEAN CORPUS HGB CONC 30.1 g/dL (32.0-36.0); MEAN CORPUSCULAR VOLUME 106.3 fL (80-100); PLATELET COUNT 119 10/3/uL (150-400)
[2016-10-17 20:07] LABS: MANUAL DIFF YES %
[2016-10-17 20:15] LABS: CHLORIDE, SERUM 113 MMOL/L (96-112); CREATININE 1.68 MG/DL (0.55-1.02); GFR AFRICAN AMERICAN 38 ML/MIN (>=60); GFR NON AFRICAN AMERICAN 32 ML/MIN (>=60); SODIUM, SERUM 144 MMOL/L (135-148)
[2016-10-17 20:16] LABS: BUN (BLOOD UREA NITROGEN) 45 MG/DL (6-23); CO2 (CARBON DIOXIDE) 11 MMOL/L (24-34); GLUCOSE, SERUM 152 MG/DL (60-99); PHOSPHORUS, SERUM 5.7 MG/DL (2.5-4.5)
[2016-10-17 20:27] LABS: PARTIAL THROMBO TIME > 150.0 SEC (22.5-37.2); PROTIME (NOT ORD) 45.7 SEC (12.0-14.5)
[2016-10-17 20:31] LABS: BAND NEUTROPHILS 26 %; IMMATURE GRANS ABSOLUTE (CALC) 0.66 10/3/uL (0.0-0.11); LYMPHOCYTES 25 %; LYMPHOCYTES ABSOLUTE (CALC) 2.75 10/3/uL (0.67-4.30); METAMYELOCYTES 5 %; MONOCYTES 1 %; MONOCYTES ABSOLUTE (CALC) 0.11 10/3/uL (0.21-1.20); MYELOCYTES 1 %; NEUTROPHILS ABSOLUTE (CALC) 7.48 10/3/uL (2.02-8.40); SEGMENTED NEUTROPHIL (0) 42 %; TOTAL NUCLEATED CELLS 100
[2016-10-17 20:32] LABS: ANISOCYTOSIS 1+ (5-10/OIF) (0-5/OIF); TOXIC GRANULATION 1+
[2016-10-17 21:11] LABS: ALKALINE PHOSPHATASE 139 U/L (45-117); DIRECT BILIRUBIN 0.1 MG/DL (0.0-0.4); INDIRECT BILIRUBIN(NOT ORDER) 0.2 MG/DL (0.1-0.9); SGPT(ALT) 1274 U/L (5-65); TOTAL BILIRUBIN 0.3 MG/DL (0-1.2)
[2016-10-17 21:12] LABS: ALBUMIN 2.9 G/DL (3.5-5.0); SGOT(AST) 2367 U/L (5-40); TOTAL PROTEIN 4.4 G/DL (6.0-8.5)
== END 2016-10-17 21:56 | disposition expired | DRG 673 ==
LOC: ER 15:07 → 6NO 17:20 → SDC/OF 10-17 17:51 → MIC 10-17 19:37
PROVIDERS: Internal Medicine; Nurse Practitioner; Physician Assistant; Surgery
PROC: 05H533Z Insertion of Infusion Device into Right Subclavian Vein, Percutaneous Approach (ICD-10-PCS; 2016-10-16)
PROC: 30233N1 Transfusion of Nonautologous Red Blood Cells into Peripheral Vein, Percutaneous Approach (ICD-10-PCS; 2016-10-17)
PROC: 0WJP0ZZ Inspection of Gastrointestinal Tract, Open Approach (ICD-10-PCS; principal; 2016-10-17 17:15)
DX: N17.9 Acute kidney failure, unspecified (principal); E43 Unspecified severe protein-calorie malnutrition; R57.8 Other shock; K55.9 Vascular disorder of intestine, unspecified; K65.9 Peritonitis, unspecified; J96.10 Chronic respiratory failure, unspecified whether with hypoxia or hypercapnia; R64 Cachexia; M79.A3 Nontraumatic compartment syndrome of abdomen; E87.2 Acidosis; Z68.1 Body mass index [BMI] 19.9 or less, adult; I50.32 Chronic diastolic (congestive) heart failure; M34.9 Systemic sclerosis, unspecified; N18.4 Chronic kidney disease, stage 4 (severe); I27.2 Other secondary pulmonary hypertension; K31.84 Gastroparesis; E86.0 Dehydration; M06.9 Rheumatoid arthritis, unspecified; Z87.01 Personal history of pneumonia (recurrent); Z93.3 Colostomy status; Z79.82 Long term (current) use of aspirin; Z87.891 Personal history of nicotine dependence; J44.9 Chronic obstructive pulmonary disease, unspecified; Z99.81 Dependence on supplemental oxygen; D50.9 Iron deficiency anemia, unspecified; R68.0 Hypothermia, not associated with low environmental temperature; I73.00 Raynaud's syndrome without gangrene; Z82.3 Family history of stroke; Z80.3 Family history of malignant neoplasm of breast; Z82.49 Family history of ischemic heart disease and other diseases of the circulatory system; Z85.048 Personal history of other malignant neoplasm of rectum, rectosigmoid junction, and anus; Z86.14 Personal history of Methicillin resistant Staphylococcus aureus infection; Z90.49 Acquired absence of other specified parts of digestive tract; Z92.21 Personal history of antineoplastic chemotherapy; Z90.710 Acquired absence of both cervix and uterus; Z92.3 Personal history of irradiation; E03.9 Hypothyroidism, unspecified; K74.60 Unspecified cirrhosis of liver; E83.42 Hypomagnesemia; E87.6 Hypokalemia; R62.7 Adult failure to thrive; K21.9 Gastro-esophageal reflux disease without esophagitis; Z88.5 Allergy status to narcotic agent
CPT/HCPCS: 31720; 36415; 36600; 71010; 74000; 74020; 74022; 80048; 80053; 80069; 80076; 81001; 82330; 82533; 82607; 82728; 82803; 82805; 82947; 83540; 83550; 83605; 83735; 84100; 84132; 84295; 84484; 85014; 85025; 85347; 85610; 85730; 86850; 86900; 86901; 86920; 93005; 94002; 94640; 96360; 99285; A9270-GY; C1751; C9113; J0330; J0690; J0780; J2250; J2370; J2405; J2550; J2765; J3010; J3370; J3475; J3480; P9016; P9045; P9047